=== PATIENT | male | born 1970 | race Caucasian/White ===

== ENCOUNTER 2023-05-26 11:25 | Inpatient (IN) | payer MEDICAID ==
[~2023-05-26] VITALS: Ht 172.7 cm; Wt 70.3 kg
[2023-05-26 11:25] VITALS: BP_SYST 121; PULSE 93; RESP 17; TEMP 97.9; O2SAT 97
[2023-05-26] MEDS ORDERED: VANCOMYCIN HCL 1,000 MG in NS 250 ML IV ONE (13:15)
[2023-05-26] MEDS ORDERED: NACL 0.9% 1,000 ML IV ONE (13:15)
[2023-05-26 13:26] LABS: BASOPHILS % (AUTO) 0.3 % (0.0-2.0); EOSINOPHILS # (AUTO) 0.1 K/uL (0.0-0.4); EOSINOPHILS % (AUTO) 1.3 % (0.0-4.0); HEMATOCRIT 39.5 % (36-54); HEMOGLOBIN 13.5 g/dL (14.0-18.0); LYMPHOCYTES # (AUTO) 1.6 K/uL (1.0-5.5); LYMPHOCYTES % (AUTO) 16.6 % (20.5-51.5); MEAN CORPUSCULAR HEMOGLOBIN 30 pg (27-31); MEAN CORPUSCULAR HGB CONC 34 % (32-36); MEAN CORPUSCULAR VOLUME 87 fL (79.0-98.0); MONOCYTES # (AUTO) 0.9 K/uL (0.0-1.0); MONOCYTES % (AUTO) 8.7 % (1.7-9.3); NEUTROPHILS # (AUTO) 7.2 K/uL (1.8-7.7); NEUTROPHILS % (AUTO) 73.1 % (40.0-70.0); PLATELET COUNT (AUTO) 226 K/uL (130-430); RED BLOOD CELL COUNT(AUTO) 4.56 MIL/uL (4.2-6.2); RED CELL DISTRIBUTION WIDTH 12.4 % (9.0-15.0); WHITE BLOOD COUNT (AUTO) 9.9 K/uL (4.8-10.8)
[2023-05-26 13:30] LABS: ERYTHROCYTE SEDIMENTATION RATE 28 MM/HR (0-15)
[2023-05-26 13:35] LABS: CALCIUM 9.4 mg/dL (8.4-11.0); CREATININE 0.98 mg/dL (0.55-1.30); POTASSIUM 4.7 mmol/L (3.5-5.1)
[2023-05-26] MEDS ORDERED: VANCOMYCIN HCL 1000 MG/VIAL IV ONE (13:43)
[2023-05-26 14:08] LABS: ALBUMIN 3.5 g/dL (3.4-4.8); TOTAL PROTEIN, SERUM 8.4 g/dL (6.4-8.3)
[2023-05-26 16:49] VITALS: BP_SYST 146; PULSE 93; RESP 20; O2SAT 99
[2023-05-26 16:57] VITALS: BP_SYST 148; PULSE 93; RESP 20; TEMP 96.6
[2023-05-26] MEDS: INSULIN REGULAR, HUMAN 100 UNITS/ML, 3 ML VIAL (humuLIN R) SUBCUT PRN ×2 (17:42→22:48)
[2023-05-26] MEDS: PIPERACILLIN/TAZO 3.375 GM in NS 50 ML IV SCH ×2 (17:43→23:57)
[2023-05-26 20:30] VITALS: BP_SYST 135; PULSE 85; RESP 20; TEMP 97.8; O2SAT 96
[2023-05-26 22:00] VITALS: O2SAT 95
[2023-05-27] VITALS (7 sets, daily range): BP systolic 105–123; PULSE 86–95; RESP 18; TEMP 98.5–99.2; O2SAT 96–98
[2023-05-27] MEDS: VANCOMYCIN HCL 1,000 MG in NS 250 ML IV SCH ×2 (02:55→13:19)
[2023-05-27 05:50] LABS: BASOPHILS % (AUTO) 0.3 % (0.0-2.0); EOSINOPHILS # (AUTO) 0.1 K/uL (0.0-0.4); EOSINOPHILS % (AUTO) 1.7 % (0.0-4.0); HEMATOCRIT 35.5 % (36-54); HEMOGLOBIN 11.9 g/dL (14.0-18.0); LYMPHOCYTES # (AUTO) 1.3 K/uL (1.0-5.5); LYMPHOCYTES % (AUTO) 15.9 % (20.5-51.5); MEAN CORPUSCULAR HEMOGLOBIN 29 pg (27-31); MEAN CORPUSCULAR HGB CONC 34 % (32-36); MEAN CORPUSCULAR VOLUME 87 fL (79.0-98.0); MONOCYTES # (AUTO) 0.7 K/uL (0.0-1.0); NEUTROPHILS # (AUTO) 6.2 K/uL (1.8-7.7); NEUTROPHILS % (AUTO) 74.1 % (40.0-70.0); PLATELET COUNT (AUTO) 211 K/uL (130-430); RED BLOOD CELL COUNT(AUTO) 4.09 MIL/uL (4.2-6.2); RED CELL DISTRIBUTION WIDTH 12.6 % (9.0-15.0); WHITE BLOOD COUNT (AUTO) 8.4 K/uL (4.8-10.8)
[2023-05-27 06:04] LABS: CALCIUM 8.6 mg/dL (8.4-11.0); CREATININE 0.95 mg/dL (0.55-1.30); POTASSIUM 3.9 mmol/L (3.5-5.1)
[2023-05-27 06:13] LABS: ALBUMIN 2.8 g/dL (3.4-4.8); TOTAL BILIRUBIN 0.9 mg/dL (0.0-1.0)
[2023-05-27] MEDS: PIPERACILLIN/TAZO 3.375 GM in NS 50 ML IV SCH ×4 (06:35→23:38)
[2023-05-27] MEDS: INSULIN REGULAR, HUMAN 100 UNITS/ML, 3 ML VIAL (humuLIN R) SUBCUT PRN ×3 (11:48→20:36)
[2023-05-28] MEDS ORDERED: ACETAMINOPHEN 325 MG TABLET PO PRN
[2023-05-28 00:17] VITALS: BP_SYST 98; PULSE 85; RESP 16; TEMP 101.1; O2SAT 97
[2023-05-28] MEDS: VANCOMYCIN HCL 1,000 MG in NS 250 ML IV SCH ×2 (02:14→13:42)
[2023-05-28 02:18] VITALS: TEMP 98.1
[2023-05-28 05:23] LABS: BASOPHILS % (AUTO) 0.4 % (0.0-2.0); EOSINOPHILS # (AUTO) 0.2 K/uL (0.0-0.4); EOSINOPHILS % (AUTO) 2.8 % (0.0-4.0); HEMATOCRIT 33.5 % (36-54); HEMOGLOBIN 11.2 g/dL (14.0-18.0); LYMPHOCYTES % (AUTO) 24.1 % (20.5-51.5); MEAN CORPUSCULAR HEMOGLOBIN 29 pg (27-31); MEAN CORPUSCULAR HGB CONC 34 % (32-36); MEAN CORPUSCULAR VOLUME 86 fL (79.0-98.0); MONOCYTES # (AUTO) 0.8 K/uL (0.0-1.0); MONOCYTES % (AUTO) 9.5 % (1.7-9.3); NEUTROPHILS # (AUTO) 5.2 K/uL (1.8-7.7); NEUTROPHILS % (AUTO) 63.2 % (40.0-70.0); PLATELET COUNT (AUTO) 220 K/uL (130-430); RED BLOOD CELL COUNT(AUTO) 3.88 MIL/uL (4.2-6.2); RED CELL DISTRIBUTION WIDTH 12.5 % (9.0-15.0); WHITE BLOOD COUNT (AUTO) 8.2 K/uL (4.8-10.8)
[2023-05-28 05:58] LABS: ALBUMIN 2.5 g/dL (3.4-4.8); CALCIUM 8.4 mg/dL (8.4-11.0); CREATININE 1.06 mg/dL (0.55-1.30); POTASSIUM 3.8 mmol/L (3.5-5.1); TOTAL BILIRUBIN 0.6 mg/dL (0.0-1.0); TOTAL PROTEIN, SERUM 6.7 g/dL (6.4-8.3); VANCOMYCIN,TROUGH 31.6 ug/mL (10.0-20.0)
[2023-05-28] MEDS: PIPERACILLIN/TAZO 3.375 GM in NS 50 ML IV SCH ×4 (05:59→23:20)
[2023-05-28] MEDS: INSULIN REGULAR, HUMAN 100 UNITS/ML, 3 ML VIAL (humuLIN R) SUBCUT PRN ×4 (06:54→21:00)
[2023-05-28 08:00] VITALS: BP_SYST 116; PULSE 78; RESP 17; TEMP 97.5; O2SAT 97
[2023-05-28 11:40] VITALS: BP_SYST 117; PULSE 81; RESP 19; TEMP 97.9; O2SAT 97
[2023-05-28 16:40] VITALS: BP_SYST 131; PULSE 87; RESP 18; TEMP 98.4; O2SAT 99
[2023-05-28 20:00] VITALS: BP_SYST 129; PULSE 90; RESP 18; TEMP 99.1; O2SAT 96
[2023-05-29] VITALS: BP_SYST 120; PULSE 86; RESP 18; TEMP 98.2; O2SAT 95
[2023-05-29] MEDS: VANCOMYCIN HCL 1,000 MG in NS 250 ML IV SCH ×2 (01:31→13:33)
[2023-05-29] MEDS: PIPERACILLIN/TAZO 3.375 GM in NS 50 ML IV SCH ×4 (06:05→23:12)
[2023-05-29] MEDS: INSULIN REGULAR, HUMAN 100 UNITS/ML, 3 ML VIAL (humuLIN R) SUBCUT PRN ×4 (06:15→20:10)
[2023-05-29 06:58] LABS: BASOPHILS % (AUTO) 0.4 % (0.0-2.0); EOSINOPHILS # (AUTO) 0.3 K/uL (0.0-0.4); EOSINOPHILS % (AUTO) 3.3 % (0.0-4.0); HEMATOCRIT 34.2 % (36-54); HEMOGLOBIN 11.3 g/dL (14.0-18.0); LYMPHOCYTES # (AUTO) 1.6 K/uL (1.0-5.5); LYMPHOCYTES % (AUTO) 18.9 % (20.5-51.5); MEAN CORPUSCULAR HEMOGLOBIN 29 pg (27-31); MEAN CORPUSCULAR HGB CONC 33 % (32-36); MEAN CORPUSCULAR VOLUME 87 fL (79.0-98.0); MONOCYTES # (AUTO) 0.9 K/uL (0.0-1.0); MONOCYTES % (AUTO) 11.1 % (1.7-9.3); NEUTROPHILS # (AUTO) 5.5 K/uL (1.8-7.7); NEUTROPHILS % (AUTO) 66.3 % (40.0-70.0); PLATELET COUNT (AUTO) 250 K/uL (130-430); RED BLOOD CELL COUNT(AUTO) 3.95 MIL/uL (4.2-6.2); RED CELL DISTRIBUTION WIDTH 12.2 % (9.0-15.0); WHITE BLOOD COUNT (AUTO) 8.3 K/uL (4.8-10.8)
[2023-05-29 07:15] LABS: CALCIUM 8.7 mg/dL (8.4-11.0); CREATININE 0.99 mg/dL (0.55-1.30); POTASSIUM 3.9 mmol/L (3.5-5.1)
[2023-05-29 08:23] VITALS: BP_SYST 110; PULSE 71; RESP 18; TEMP 98.6; O2SAT 98
[2023-05-29 18:46] VITALS: BP_SYST 125; PULSE 75; RESP 18; TEMP 98.5; O2SAT 98
[2023-05-29 21:45] VITALS: BP_SYST 126; PULSE 90; RESP 18; TEMP 98.5; O2SAT 96
[2023-05-29] MEDS: CLINDAMYCIN HCL 150 MG CAPSULE PO SCH (23:12)
[2023-05-30 00:40] VITALS: BP_SYST 149; PULSE 92; RESP 18; TEMP 98.8; O2SAT 97
[2023-05-30] MEDS: CLINDAMYCIN HCL 150 MG CAPSULE PO SCH ×3 (05:56→17:25)
[2023-05-30] MEDS: INSULIN REGULAR, HUMAN 100 UNITS/ML, 3 ML VIAL (humuLIN R) SUBCUT PRN ×4 (05:56→22:28)
[2023-05-30] MEDS: PIPERACILLIN/TAZO 3.375 GM in NS 50 ML IV SCH ×3 (05:57→17:26)
[2023-05-30 07:21] LABS: BASOPHILS % (AUTO) 0.5 % (0.0-2.0); EOSINOPHILS # (AUTO) 0.3 K/uL (0.0-0.4); HEMATOCRIT 34.4 % (36-54); HEMOGLOBIN 11.6 g/dL (14.0-18.0); LYMPHOCYTES # (AUTO) 1.7 K/uL (1.0-5.5); LYMPHOCYTES % (AUTO) 22.2 % (20.5-51.5); MEAN CORPUSCULAR HEMOGLOBIN 29 pg (27-31); MEAN CORPUSCULAR HGB CONC 34 % (32-36); MEAN CORPUSCULAR VOLUME 86 fL (79.0-98.0); MONOCYTES # (AUTO) 0.8 K/uL (0.0-1.0); MONOCYTES % (AUTO) 10.5 % (1.7-9.3); NEUTROPHILS # (AUTO) 4.7 K/uL (1.8-7.7); NEUTROPHILS % (AUTO) 62.8 % (40.0-70.0); PLATELET COUNT (AUTO) 265 K/uL (130-430); RED CELL DISTRIBUTION WIDTH 12.3 % (9.0-15.0); WHITE BLOOD COUNT (AUTO) 7.5 K/uL (4.8-10.8)
[2023-05-30 07:40] LABS: CALCIUM 8.8 mg/dL (8.4-11.0); CREATININE 1.09 mg/dL (0.55-1.30); POTASSIUM 3.9 mmol/L (3.5-5.1)
[2023-05-30 08:44] VITALS: BP_SYST 103; PULSE 88; RESP 17; TEMP 98.6; O2SAT 97
[2023-05-30 12:01] VITALS: BP_SYST 129; PULSE 84; RESP 17; TEMP 98; O2SAT 96
[2023-05-30 16:05] VITALS: BP_SYST 120; PULSE 81; RESP 17; TEMP 98.2; O2SAT 96
[2023-05-30 20:02] VITALS: BP_SYST 115; PULSE 82; RESP 18; TEMP 97.9; O2SAT 97
[2023-05-31] VITALS: BP_SYST 111; PULSE 88; RESP 14; TEMP 97.5; O2SAT 97
[2023-05-31] MEDS: PIPERACILLIN/TAZO 3.375 GM in NS 50 ML IV SCH ×4 (00:48→17:06)
[2023-05-31] MEDS: CLINDAMYCIN HCL 150 MG CAPSULE PO SCH ×4 (00:48→17:07)
[2023-05-31] MEDS: INSULIN REGULAR, HUMAN 100 UNITS/ML, 3 ML VIAL (humuLIN R) SUBCUT PRN ×4 (06:34→21:20)
[2023-05-31 06:44] LABS: BASOPHILS % (AUTO) 0.5 % (0.0-2.0); EOSINOPHILS # (AUTO) 0.3 K/uL (0.0-0.4); EOSINOPHILS % (AUTO) 4.3 % (0.0-4.0); HEMATOCRIT 33.6 % (36-54); HEMOGLOBIN 11.5 g/dL (14.0-18.0); LYMPHOCYTES # (AUTO) 2.1 K/uL (1.0-5.5); LYMPHOCYTES % (AUTO) 30.3 % (20.5-51.5); MEAN CORPUSCULAR HEMOGLOBIN 29 pg (27-31); MEAN CORPUSCULAR HGB CONC 34 % (32-36); MEAN CORPUSCULAR VOLUME 86 fL (79.0-98.0); MONOCYTES # (AUTO) 0.7 K/uL (0.0-1.0); MONOCYTES % (AUTO) 10.2 % (1.7-9.3); NEUTROPHILS # (AUTO) 3.8 K/uL (1.8-7.7); NEUTROPHILS % (AUTO) 54.7 % (40.0-70.0); PLATELET COUNT (AUTO) 293 K/uL (130-430); RED BLOOD CELL COUNT(AUTO) 3.91 MIL/uL (4.2-6.2); RED CELL DISTRIBUTION WIDTH 12.4 % (9.0-15.0); WHITE BLOOD COUNT (AUTO) 6.9 K/uL (4.8-10.8)
[2023-05-31 06:53] LABS: CALCIUM 8.8 mg/dL (8.4-11.0); CREATININE 1.25 mg/dL (0.55-1.30); POTASSIUM 4.5 mmol/L (3.5-5.1)
[2023-05-31 08:00] VITALS: BP_SYST 101; PULSE 86; RESP 17; TEMP 97.3; O2SAT 98
[2023-05-31 12:00] VITALS: BP_SYST 17; PULSE 84; RESP 18; TEMP 97.4; O2SAT 97
[2023-05-31 16:00] VITALS: BP_SYST 123; PULSE 79; RESP 18; TEMP 98.4; O2SAT 96
[2023-05-31 20:00] VITALS: BP_SYST 113; PULSE 85; RESP 18; TEMP 98.8; O2SAT 98
[2023-06-01 00:15] VITALS: BP_SYST 110; PULSE 80; RESP 15; TEMP 97.7; O2SAT 100
[2023-06-01] MEDS: CLINDAMYCIN HCL 150 MG CAPSULE PO SCH ×4 (00:33→18:13)
[2023-06-01] MEDS: PIPERACILLIN/TAZO 3.375 GM in NS 50 ML IV SCH ×4 (00:33→18:09)
[2023-06-01 06:17] LABS: BASOPHILS % (AUTO) 0.6 % (0.0-2.0); EOSINOPHILS # (AUTO) 0.3 K/uL (0.0-0.4); EOSINOPHILS % (AUTO) 4.6 % (0.0-4.0); HEMATOCRIT 34.8 % (36-54); HEMOGLOBIN 11.7 g/dL (14.0-18.0); LYMPHOCYTES # (AUTO) 2.2 K/uL (1.0-5.5); LYMPHOCYTES % (AUTO) 30.1 % (20.5-51.5); MEAN CORPUSCULAR HEMOGLOBIN 29 pg (27-31); MEAN CORPUSCULAR HGB CONC 34 % (32-36); MEAN CORPUSCULAR VOLUME 86 fL (79.0-98.0); MONOCYTES # (AUTO) 0.6 K/uL (0.0-1.0); MONOCYTES % (AUTO) 8.2 % (1.7-9.3); NEUTROPHILS % (AUTO) 56.5 % (40.0-70.0); PLATELET COUNT (AUTO) 358 K/uL (130-430); RED BLOOD CELL COUNT(AUTO) 4.05 MIL/uL (4.2-6.2); RED CELL DISTRIBUTION WIDTH 12.6 % (9.0-15.0); WHITE BLOOD COUNT (AUTO) 7.2 K/uL (4.8-10.8)
[2023-06-01 06:38] LABS: CALCIUM 9.2 mg/dL (8.4-11.0); CREATININE 1.07 mg/dL (0.55-1.30); POTASSIUM 4.2 mmol/L (3.5-5.1)
[2023-06-01 08:00] VITALS: BP_SYST 91; PULSE 90; RESP 14; TEMP 98.8; O2SAT 94
[2023-06-01] MEDS: INSULIN REGULAR, HUMAN 100 UNITS/ML, 3 ML VIAL (humuLIN R) SUBCUT PRN ×3 (11:49→21:10)
[2023-06-01 12:00] VITALS: BP_SYST 119; PULSE 77; RESP 15; TEMP 98.6; O2SAT 97
[2023-06-01 16:00] VITALS: BP_SYST 103; PULSE 79; RESP 15; TEMP 97.4; O2SAT 97
[2023-06-02 00:29] VITALS: BP_SYST 101; PULSE 78; RESP 18; TEMP 98.1; O2SAT 97
[2023-06-02] MEDS: CLINDAMYCIN HCL 150 MG CAPSULE PO SCH ×5 (00:35→23:49)
[2023-06-02] MEDS: PIPERACILLIN/TAZO 3.375 GM in NS 50 ML IV SCH ×4 (00:36→17:58)
[2023-06-02 06:37] LABS: BASOPHILS % (AUTO) 0.6 % (0.0-2.0); EOSINOPHILS # (AUTO) 0.2 K/uL (0.0-0.4); EOSINOPHILS % (AUTO) 3.4 % (0.0-4.0); HEMATOCRIT 34.8 % (36-54); HEMOGLOBIN 11.6 g/dL (14.0-18.0); LYMPHOCYTES % (AUTO) 28.3 % (20.5-51.5); MEAN CORPUSCULAR HEMOGLOBIN 29 pg (27-31); MEAN CORPUSCULAR HGB CONC 33 % (32-36); MEAN CORPUSCULAR VOLUME 87 fL (79.0-98.0); MONOCYTES # (AUTO) 0.5 K/uL (0.0-1.0); MONOCYTES % (AUTO) 7.3 % (1.7-9.3); NEUTROPHILS # (AUTO) 4.3 K/uL (1.8-7.7); NEUTROPHILS % (AUTO) 60.4 % (40.0-70.0); PLATELET COUNT (AUTO) 404 K/uL (130-430); RED BLOOD CELL COUNT(AUTO) 4.01 MIL/uL (4.2-6.2); RED CELL DISTRIBUTION WIDTH 12.4 % (9.0-15.0); WHITE BLOOD COUNT (AUTO) 7.1 K/uL (4.8-10.8)
[2023-06-02] MEDS: INSULIN REGULAR, HUMAN 100 UNITS/ML, 3 ML VIAL (humuLIN R) SUBCUT PRN ×4 (06:44→20:53)
[2023-06-02 07:22] LABS: CALCIUM 9.1 mg/dL (8.4-11.0); CREATININE 1.09 mg/dL (0.55-1.30); POTASSIUM 4.3 mmol/L (3.5-5.1)
[2023-06-02 08:30] VITALS: O2SAT 96
[2023-06-02 09:12] VITALS: BP_SYST 101; PULSE 81; RESP 18; TEMP 99; O2SAT 96
[2023-06-02 09:21] LABS: INR 1.1 (0.80-1.20); PROTHROMBIN TIME 11.2 SECS (9.5-12.5)
[2023-06-02 12:27] VITALS: BP_SYST 151; PULSE 112; RESP 16; TEMP 98.6; O2SAT 96
[2023-06-02 16:00] VITALS: BP_SYST 116; PULSE 75; RESP 16; TEMP 98.6; O2SAT 97
[2023-06-02 20:00] VITALS: BP_SYST 112; PULSE 80; RESP 18; TEMP 99.1; O2SAT 98
[2023-06-03] VITALS: BP_SYST 110; PULSE 70; RESP 17; TEMP 97.9; O2SAT 97
[2023-06-03] MEDS: PIPERACILLIN/TAZO 3.375 GM in NS 50 ML IV SCH ×4 (00:36→17:20)
[2023-06-03 04:59] VITALS: O2SAT 98
[2023-06-03] MEDS: CLINDAMYCIN HCL 150 MG CAPSULE PO SCH ×3 (06:37→17:49)
[2023-06-03 07:36] LABS: BASOPHILS % (AUTO) 0.6 % (0.0-2.0); EOSINOPHILS # (AUTO) 0.2 K/uL (0.0-0.4); EOSINOPHILS % (AUTO) 3.2 % (0.0-4.0); HEMATOCRIT 33.5 % (36-54); HEMOGLOBIN 11.2 g/dL (14.0-18.0); LYMPHOCYTES # (AUTO) 2.1 K/uL (1.0-5.5); LYMPHOCYTES % (AUTO) 29.1 % (20.5-51.5); MEAN CORPUSCULAR HEMOGLOBIN 29 pg (27-31); MEAN CORPUSCULAR HGB CONC 33 % (32-36); MEAN CORPUSCULAR VOLUME 86 fL (79.0-98.0); MONOCYTES # (AUTO) 0.5 K/uL (0.0-1.0); MONOCYTES % (AUTO) 7.5 % (1.7-9.3); NEUTROPHILS # (AUTO) 4.4 K/uL (1.8-7.7); NEUTROPHILS % (AUTO) 59.6 % (40.0-70.0); PLATELET COUNT (AUTO) 414 K/uL (130-430); RED BLOOD CELL COUNT(AUTO) 3.92 MIL/uL (4.2-6.2); RED CELL DISTRIBUTION WIDTH 12.4 % (9.0-15.0); WHITE BLOOD COUNT (AUTO) 7.3 K/uL (4.8-10.8)
[2023-06-03 07:38] LABS: CALCIUM 8.9 mg/dL (8.4-11.0); CREATININE 1.06 mg/dL (0.55-1.30); POTASSIUM 3.7 mmol/L (3.5-5.1)
[2023-06-03 08:00] VITALS: BP_SYST 105; PULSE 82; RESP 18; TEMP 98; O2SAT 100
[2023-06-03] MEDS ORDERED: ASCO500C18 PO (10:20)
[2023-06-03] MEDS ORDERED: CLIN-22 PO (10:20)
[2023-06-03] MEDS ORDERED: ZINC220T3 PO (10:20)
[2023-06-03] MEDS: INSULIN REGULAR, HUMAN 100 UNITS/ML, 3 ML VIAL (humuLIN R) SUBCUT PRN ×2 (12:06→17:52)
[2023-06-03 12:14] VITALS: BP_SYST 107; PULSE 78; RESP 17; TEMP 97.9; O2SAT 97
[2023-06-03 16:12] VITALS: BP_SYST 106; PULSE 80; RESP 18; TEMP 98.1; O2SAT 99
[2023-06-03 18:27] VITALS: BP_SYST 122; PULSE 74; RESP 18; TEMP 98.2; O2SAT 98
== END 2023-06-03 18:54 | disposition home health service (06) | DRG 344 ==
LOC: SED 11:25 → SMU 15:04
PROVIDERS: ADMIT Internal Medicine; ATTEND Internal Medicine
DX: E11.69 Type 2 diabetes mellitus with other specified complication (principal); M86.8X7 Other osteomyelitis, ankle and foot; E11.621 Type 2 diabetes mellitus with foot ulcer; E44.1 Mild protein-calorie malnutrition; L03.115 Cellulitis of right lower limb; E87.1 Hypo-osmolality and hyponatremia; Z68.23 Body mass index [BMI] 23.0-23.9, adult
CPT/HCPCS: 36415; 71045; 78315; 80048; 80053; 80202; 82962; 83037; 83605; 85025; 85610-TC; 85651-TC; 85730-TC; 87040; 87070-TC; 93923; 93971; 96365; 96366; 97110-GP; 97116-GP; 97530-GP; 99285; A9503; J1815; J2543; J3370; J7050

== ENCOUNTER 2023-06-13 16:49 | Emergency (ER) | payer MEDICAID ==
[~2023-06-13] VITALS: Ht 167.6 cm; Wt 69.9 kg
[~2023-06-13 16:49] MED LIST: ASCO500C18 PO; CLIN-22 PO; ZINC220T3 PO
[2023-06-13 16:55] VITALS: BP_SYST 124; PULSE 92; RESP 18; TEMP 98.3; O2SAT 99
[2023-06-13] MEDS ORDERED: BACITRACIN 1 GM OINT TP ONE (17:45)
[2023-06-13 17:46] VITALS: BP_SYST 124; PULSE 92; RESP 18; TEMP 98.3; O2SAT 99
== END 2023-06-13 17:46 | disposition home or self-care (01) ==
LOC: SED 16:49
DX: M86.8X7 Other osteomyelitis, ankle and foot (principal); E11.9 Type 2 diabetes mellitus without complications; Z79.899 Other long term (current) drug therapy
CPT/HCPCS: 99282

== ENCOUNTER 2023-07-12 14:05 | Emergency (ER) | payer MEDICAID ==
[~2023-07-12] VITALS: Ht 167.6 cm; Wt 68.0 kg
[2023-07-12 14:11] VITALS: BP_SYST 120; PULSE 89; RESP 18; TEMP 98.3; O2SAT 99
[2023-07-12 14:59] VITALS: BP_SYST 120; PULSE 89; RESP 18; TEMP 98.3; O2SAT 99
== END 2023-07-12 14:59 | disposition home or self-care (01) ==
LOC: SED 14:05
DX: T80.211A Bloodstream infection due to central venous catheter, initial encounter (principal); E11.9 Type 2 diabetes mellitus without complications; Z79.899 Other long term (current) drug therapy
CPT/HCPCS: 99281